=== PATIENT | male | born 1945 | race Caucasian/White ===

== ENCOUNTER 2016-08-09 21:17 | Emergency (ER) | payer MEDICARE ==
[~2016-08-09] VITALS: Ht 180.3 cm; Wt 75.0 kg
[2016-08-09 21:24] VITALS: BP 199/100; PULSE 92; RESP 20; O2SAT 93
[2016-08-09] MEDS ORDERED: Albuterol-Ipratropium 3 mL Inhalation Solution ONE (21:30)
[2016-08-09 21:39] VITALS: PULSE 91; RESP 22; O2SAT 95
[2016-08-09] MEDS ORDERED: Albuterol-Ipratropium 3 mL Inhalation Solution NEB ONE (21:55)
[2016-08-09] MEDS ORDERED: MethylprednisoLONE Sodium Succinate 62.5 mg/mL 2 mL Inj IVPUSH ONE (21:55)
[2016-08-09 22:02] LABS: BASOPHILS % (AUTO) 0.3 % (0-3); EOSINOPHILS % (AUTO) 1.8 % (0-5); MONOCYTES % (AUTO) 6.8 % (4-12); Mean Corpuscular Hemoglobin 31.8 pg (27.0-35.0); Mean Corpuscular Volume 91.7 fL (81-100); Platelet Count 227 bil/L (150-400)
[2016-08-09] MEDS ORDERED: Ondansetron 2 mg/mL 2 mL Inj ONE (22:22)
[2016-08-09] MEDS ORDERED: Ondansetron 2 mg/mL 2 mL Inj IVPUSH PRN (22:25)
[2016-08-09 22:36] LABS: TROPONIN T 0.01 ug/L (0.0-0.011)
[2016-08-09] MEDS ORDERED: _Albuterol-HFA 60 Puff Inhaler INHALATION PRN (22:45)
--- NOTE | 2016-08-09 23:10 | ED.REPORT ---
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 Associated symptoms include a near LOC, flushed face, blue lips, bronchial spasm, anaphylaxis, angioedema and diaphoresis. He has never experienced these symptoms before. Nursing Notes Stated Complaint: CANT BREATH Chief Complaint: Respiratory Distress Nursing Notes Reviewed: Yes Allergies: Coded Allergies: Cat Dander (Verified Allergy, Intermediate, 08/09/16) General Time Seen by MD: 21:35 Chief Complaint Shortness of breath Hx Obtained From: Patient Arrived By: Walk-in Sudden in Onset?: Yes Onset Occurred: Just prior to arrival Symptom Duration: Since onset Severity: Current: No pain currently Recent Healthcare: No recent doctor visit, No recent hospitalization Similar Sx Previous: No Past Medical History Past Medical History Reports: Hypertension Past Surgical History denies Smoking History Unknown if Ever Smoker Social History Other Social History: Good social support, , Local resident Ambulatory Status Independent Review of Systems Review of Systems Note: blue lips flushed face Respiratory: Reports: Shortness of breath, Wheezing Skin: Reports Diaphoresis Complete sys rev & neg: except as marked. Neurologic: Reports: Lightheaded Physical Exam Initial Vital Signs Vital Signs (First) Date Time Temp Pulse Resp B/P Pulse Ox O2 Delivery O2 Flow Rate FiO2 08/09/16 21:24 36.0 92 20 199/100 93 Room Air Initial VS: Reviewed ENT: Mucous membranes moist, Conjunctiva normal Neurologic: Alert, Oriented Psychiatric: Mood/affect normal, Behavior normal General/Constitutional: Awake, Alert, Cooperative, Not toxic appearing Neck: Atraumatic, Supple, No meningismus Resp Distress / Stridor: Positive: Resp distress mild bronchial spasm Cardiovascular: Heart rate NL, Regular rhythm, Heart sounds NL Head / Eyes: Normocephalic angioedema Interpretation & Diagnostics Lab Results Interpretation Result Diagram: 08/09/16213508/09/162135 Test 08/09/16 21:36 08/09/16 23:58 White Blood Count 4.0th/mm3 (3.8-10.1) Red Blood Count 5.51mil/mm3 (4.40-5.80) Hemoglobin 17.5g/dL (13.8-17.2) Hematocrit 50.5% (41.0-50.0) Mean Corpuscular Volume 91.7fL (81-100) Mean Corpuscular Hemoglobin 31.8pg (27.0-35.0) Mean Corpuscular Hemoglobin Concent 34.7% (32.0-37.0) Red Cell Distribution Width 12.9% (12.3-15.4) Platelet Count 227bil/L (150-400) Neutrophils (%) (Auto) 43.0% (40-74) Lymphocytes (%) (Auto) 47.8% (14-46) Monocytes (%) (Auto) 6.8% (4-12) Eosinophils (%) (Auto) 1.8% (0-5) Basophils (%) (Auto) 0.3% (0-3) Hold Purple Top Tube Received (Received) D-Dimer < 0.50mg/L FEU (<0.50) Hold Blue Top Tube Received (Received) Sodium Level 140mEq/L (134-144) Potassium Level 4.3mEq/L (3.5-5.2) Chloride Level 100mEq/L (97-108) Carbon Dioxide Level 22mmol/L (18-29) Blood Urea Nitrogen 19mg/dL (8-27) Creatinine 1.03mg/dL (0.76-1.27) Estimat Glomerular Filtration Rate 76mL/min (>59) Glucose Level 128mg/dL (60-99) Calcium Level 9.2mg/dL (8.5-10.1) Total Bilirubin 0.2mg/dL (0.0-1.2) Aspartate Amino Transf (AST/SGOT) 29U/L (0-50) Alanine Aminotransferase (ALT/SGPT) 18U/L (0-44) Alkaline Phosphatase 67U/L (25-160) Total Protein 7.3g/dL (6.4-8.4) Albumin 4.3g/dL (3.4-5.0) Hold [place] Top Tube Received (Received) Hold Michael Top Tube Received (Received) Troponin T 0.010ug/L (0.0-0.011) ECG Interpretation Time: 00:19 Interpreted by: ED physician Normal ECG Interpretation: Normal ECG w/ rate of... (83) X-Ray Chest Interpretation Chest Xray Interpretation: Impression: no acute findings View: Portable Interpretation / Wet Read by: Wet read ED physician Re-Eval/Medical Decision Med Decision/Clinical Course This is a very pleasant 70-year-old male who presents with increased work of breathing, mild angioedema of the tongue and shortness of breath after exposure to grass pollen and chemicals. He does have a history of either reactive airway disease or possibly asthma. Either way on examination he had mild angioedema of the tongue. He had faint wheeze bilaterally however had significant retractions. He was treated with IV steroids IV Benadryl and DuoNeb 's. He did not require epinephrine. The angioedema resolved after about an hour and half and is able to take nitrates deep breaths. He came in with a beet red face and at discharge she had normal-appearing skin. EKGs did not show evidence of an acute coronary syndrome. D-dimer was negative. Chest x- ray to me looked like a scar in the left base. Laboratory work was otherwise normal. At discharge his lungs were clear. He was not coughing. He had no fever. He was asymptomatic. She will troponins were negative. I will check in with him tomorrow to see how he is doing. August 10 at 5:55 PM: I spoke with Abhi at home. He feels great. No shortness of breath. No cough. No fever. I shared with him that our radiologist felt that he was developing a pneumonia based on the chest x-ray. Clinically has no signs or symptoms of pneumonia and he is asymptomatic right now. I do not feel that antibiotics are indicated at this time. His is a highly respected physician who works here at [facility]. He will share the that results with her. I did ask him to call me if he develops anything whatsoever that seems even remotely like a chest infection. He has already set up a follow-up with Dr. Marion. If he comes down with cough, fever chills or even rigors he will let me know and I will start him on antibiotics. Otherwise he will use the medications as prescribed. Re-Evaluation/Progress : Time of Eval: 00:25 Re-Evaluation/Progress Note: Pt rechecked. He looks much better and his lungs are clear. All signs of angioedema have resolved. Plan to discharge with Prednisone, albuterol inhaler, and epi pen. Informed pt of diagnosis and plan for treatment. F/U and RTER warnings given. Pt understands and agrees with plan. Counseled Regarding: Diagnosis, Lab results, Need for follow-up, When/why to return to ED Discharge & Departure Impression: Primary Impression: Anaphylactic reaction Encounter type: initial encounter Qualified Code: T78.2XXA - Anaphylactic shock, unspecified, initial encounter Additional Impression: Bronchial spasm Disposition: Home Discharge Condition All VS Reviewed: Yes Condition: Stable Patient Instructions: Anaphylaxis (GEN), Reactive Airways Disease (ED) Additional Instructions: Your heart, blood tests, and EKG were reassuring. I suspect that you had an inhalational exposure to an allergen that led to the throat swelling and bronchospasm. Try to avoid this chemical/exposure material in the future. Allergy testing may also be beneficial. Discuss this with your primary care physician. I am writing you a prescription for Prednisone to take 5x daily. Use the Albuterol inhaler 2 puffs every 2 hours as needed for cough and wheeze.. Keep the epi pen at hand for use as directed as needed. Follow up with your primary care physician for further evaluation. Call Thursday to set up a follow-up appointment. Return to the Emergency Department for any new or worsening symptoms. Have a good evening! Referrals: Lionel Marion MD (PCP) Scribe Attestation Portion of this note were transcribed by Cherelle Archibald. I, Dr. Poole, personally performed the history, physical exam, and medical decision-making: I reviewed and confirmed the accuracy for the information in the transcribed note. Signed by: airam Harrison, 08/10/16 0100 copies to: Lionel Marion MD, Todd P DO Aug 09, 2016 23:10 Cherelle Archibald Aug 09, 2016 23:13
[2016-08-10 01:17] VITALS: BP 145/82; PULSE 89; RESP 12; O2SAT 98
--- NOTE | 2016-08-10 10:23 | DRSVH ---
PROCEDURE: X-RAY CHEST ONE VIEW, PORTABLE ([id number]) INDICATIONS: dyspnea TECHNIQUE: One view of the chest was acquired. COMPARISON: None. FINDINGS: Surgical changes and devices: None. Lungs and pleura: There is left basilar infiltrate. No pleural effusions or pneumothorax. Mediastinum: Mediastinal contours appear normal. Heart size is normal. Bones and chest wall: No suspicious bony lesions. Overlying soft tissues appear unremarkable. IMPRESSION: Left basilar infiltrate suspicious for pneumonia. Dictated by: Juliette Soto M.D. on 08/10/2016 at 10:21 Approved by: Juliette Soto M.D. on 08/10/2016 at 10:22
== END 2016-08-10 01:11 | disposition home or self-care (01) ==
LOC: SED 21:17
DX: T78.2XXA Anaphylactic shock, unspecified, initial encounter (principal); X58.XXXA Exposure to other specified factors, initial encounter; Y93.89 Activity, other specified; Y92.89 Other specified places as the place of occurrence of the external cause; Y99.8 Other external cause status; J98.01 Acute bronchospasm; I10 Essential (primary) hypertension; Z88.8 Allergy status to other drugs, medicaments and biological substances
CPT/HCPCS: 71010; 80053; 84484; 85025; 85378; 93005; 94640; 94644; 96374; 96375; 99285; J1200; J2930; J7620